=== PATIENT | female | born 2000 | race Caucasian/White ===

== ENCOUNTER 2024-01-06 13:24 | Emergency (ER) | payer MEDICAID ==
[~2024-01-06] VITALS: Ht 154.9 cm; Wt 63.6 kg
[2024-01-06 15:34] LABS: BILIRUBIN,URINE NEGATIVE (Neg); CLARITY,URINE SLIGHTLY CLOUDY (Clear); COLOR,URINE YELLOW (Yellow); GLUCOSE, URINE NEGATIVE (Neg); KETONES,URINE NEGATIVE (Neg); LEUKOCYTE ESTERASE ,URINE NEGATIVE (Neg); NITRITES, URINE NEGATIVE (Neg); OCCULT BLOOD,URINE NEGATIVE (Neg); PROTEIN,URINE NEGATIVE (Neg); UROBILINOGEN,URINE 0.2 E.U/dL (0.2-1.0)
[2024-01-06 15:35] LABS: UA COLLECTION TYPE CLN CATCH MIDSTREAM
[2024-01-06 15:40] LABS: MUCUS STRANDS MANY /LPF (Neg); SQUAMOUS EPITHELIAL CELL,UR MANY /LPF (FEW)
[2024-01-06 15:41] LABS: BACTERIA,URINE 2+ /HPF (Neg); RBC,URINE 0-2 /HPF (0-2); WBC,URINE 20-30 /HPF (0-4)
[2024-01-06 15:47] LABS: URINE HCG NEGATIVE (NEG)
[2024-01-06] MEDS ORDERED: DOXY-224 PO (17:30)
[2024-01-06] MEDS ORDERED: METR-159 PO (17:30)
[2024-01-06] MEDS ORDERED: CefTRIAXone/D5W-Rocephin 1gm 50 ML IV ONE (17:30)
[2024-01-06] MEDS ORDERED: DIF150T PO (17:30)
[2024-01-06] MEDS: CefTRIAXone 1000mg IM Kit (w/lidocaine diluent) IM ONE (18:07)
[2024-01-06] MEDS: DOXYCYCLINE 100MG CAPSULE PO STA (18:07)
[2024-01-06] MEDS: ondansetron 4mg rapidly disintigrating tab PO ONE (18:07)
[2024-01-06] MEDS: metroNIDAZOLE 500mg tablet PO ONE (18:07)
[2024-01-06 18:13] VITALS: BP 128/65; PULSE 70; RESP 16; TEMP 98.5; O2SAT 99
[2024-01-09 11:30] LABS: CHLAMYDIA TRACHOMATIS, NAA Negative (Negative)
== END 2024-01-06 18:14 | disposition home or self-care (01) ==
LOC: ER 13:25
DX: N73.0 Acute parametritis and pelvic cellulitis (principal); Z88.1 Allergy status to other antibiotic agents; Z79.2 Long term (current) use of antibiotics; Z79.899 Other long term (current) drug therapy
CPT/HCPCS: 36415; 76856; 81001; 81025; 87491; 87591; 93976; 96372; 99285; J0696